=== PATIENT | female | born 1990 | race Caucasian/White ===

== ENCOUNTER 2019-12-29 15:21 | Outpatient (REF) | payer SELFPAY ==
[2020-01-02 18:18] LABS: Patient Race White; SARS-CoV-2 RNA Undetected (Undetected); SARS-CoV-2 Specimen Source Nasal
== END 2019-12-29 15:41 ==
LOC: NCHCN 15:21
PROVIDERS: Visit Provider Nurse Practitioner Family
DX: Z20.828 Contact with and (suspected) exposure to other viral communicable diseases (principal)
CPT/HCPCS: U0003

== ENCOUNTER 2021-01-22 21:38 | Outpatient (REF) | payer OTHER, SELFPAY ==
[2021-01-24 10:41] LABS: Lyme Ab w Rflx to Lyme Confirm Negative (Negative)
== END 2021-01-22 21:39 | disposition home or self-care (01) ==
LOC: NCHCN 21:38
PROVIDERS: Visit Provider Nurse Practitioner Family
DX: M25.572 Pain in left ankle and joints of left foot (principal); K30 Functional dyspepsia
CPT/HCPCS: 87798; 85025; 86618

== ENCOUNTER 2021-01-24 16:20 | Outpatient (REF) | payer OTHER, SELFPAY ==
[2021-01-24 22:12] LABS: Abs Immature Grans 0.02 10^3/uL (0.0-0.06); Absolute Basophil Count 0.04 10^3/uL (0.0-0.2); Absolute Eosinophil Count 0.05 10^3/uL (0.0-0.7); Absolute Lymphocyte Count 2.29 10^3/uL (1.2-3.4); Absolute Monocyte Count 0.29 10^3/uL (0.1-0.8); Absolute Neutrophil Count 5.26 10^3/uL (1.2-6.7); Basophils % 0.5; Eosinophils % 0.6; HCT 43.7 % (36.0-46.0); HGB 14.7 g/dL (11.2-15.7); Immature Grans % 0.3; Lymphocytes % 28.8; MCHC 33.6 % (32.0-36.0); MCV 89.2 fL (80-95); MPV 9.8 fL (8.0-11.0); Monocytes % 3.6; Neutrophils % 66.2; Nucleated RBC 0 %; Platelet Count 313 10^3/uL (130-400); RDW 11.9 % (11.7-14.6); RDW-SD 39.1 fL; WBC 7.95 10^3/uL (4.4-10.8)
[2021-01-27 23:36] LABS: Anaplasma phagocytophilum Negative (Negative); B. miyamotoi PCR Negative (Negative); Babesia divergens/MO-1 Negative (Negative); Babesia duncani Negative (Negative); Babesia microti Negative (Negative); Ehrlichia chaffeensis Negative (Negative); Ehrlichia ewingii/canis Negative (Negative); Ehrlichia muris eauclairensis Negative (Negative)
== END 2021-01-24 16:21 | disposition home or self-care (01) ==
LOC: NCHCN 16:20
PROVIDERS: Visit Provider Nurse Practitioner Family
DX: K30 Functional dyspepsia (principal); R59.9 Enlarged lymph nodes, unspecified; M25.572 Pain in left ankle and joints of left foot; Z00.00 Encounter for general adult medical examination without abnormal findings
CPT/HCPCS: 87798; 85025

== ENCOUNTER 2022-09-18 15:18 | Outpatient (REF) | payer BC, SELFPAY ==
[2022-09-18 22:30] LABS: TSH (W/Ref FT4) 1.23 uIU/mL (0.36-3.74)
== END 2022-09-18 15:19 | disposition home or self-care (01) ==
LOC: NCHCN 15:18
PROVIDERS: Visit Provider Family Medicine
DX: G56.02 Carpal tunnel syndrome, left upper limb (principal); Z39.2 Encounter for routine postpartum follow-up
CPT/HCPCS: 84443

== ENCOUNTER 2023-01-16 12:59 | Outpatient (REF) | payer BC, SELFPAY ==
[2023-01-16 14:34] LABS: Abs Immature Grans 0.01 10^3/uL (0.0-0.06); Absolute Basophil Count 0.04 10^3/uL (0.0-0.2); Absolute Eosinophil Count 0.08 10^3/uL (0.0-0.7); Absolute Lymphocyte Count 1.39 10^3/uL (1.2-3.4); Absolute Monocyte Count 0.35 10^3/uL (0.1-0.8); Absolute Neutrophil Count 2.68 10^3/uL (1.2-6.7); Basophils % 0.9; Eosinophils % 1.8; HCT 44.6 % (36.0-46.0); Immature Grans % 0.2; Lymphocytes % 30.5; MCH 28.7 pg (27.0-33.0); MCHC 33.6 % (32.0-36.0); MCV 85 fL (80-95); MPV 10.6 fL (8.0-11.0); Monocytes % 7.7; Neutrophils % 58.9; Platelet Count 244 10^3/uL (130-400); RBC 5.23 10^6/uL (3.93-5.22); RDW-SD 40.6 fL; WBC 4.55 10^3/uL (4.4-10.8)
[2023-01-16 15:21] LABS: Ferritin 30 ng/mL (8-252); TSH (W/Ref FT4) 0.76 uIU/mL (0.36-3.74); Vitamin B12 523 pg/mL (193-986)
[2023-01-16 15:28] LABS: Iron 82 ug/dL (50-170); Total Iron Binding Capacity 367 ug/dL (250-450); Transferrin Sat 22 % (15-50)
== END 2023-01-16 13:00 | disposition home or self-care (01) ==
LOC: NCHCN 12:59
PROVIDERS: Visit Provider Nurse Practitioner Family
DX: Z00.00 Encounter for general adult medical examination without abnormal findings (principal); R20.2 Paresthesia of skin; R53.83 Other fatigue; M54.9 Dorsalgia, unspecified; J30.2 Other seasonal allergic rhinitis
CPT/HCPCS: 82607; 82728; 83540; 83550; 84443; 85025